=== PATIENT | male | born 1955 | race Caucasian/White ===

== ENCOUNTER → 2016-08-01 | Outpatient (CLI) | payer BC ==
[~2016-08-01] MED LIST: CENTRUM SILVER1 TAB PO; COLACE 100100 MG/CAP PO; FLOMAX 0.40.4 MG/CAP PO; FORT1000TA PO; GLEEVEC100 MG PO; GLUCOSAMINE CHO1 CAP PO; HUMULIN R100 U/ML SC; LANTUS100 U/ML SC; LIPITOR40 MG PO; METAMUCIL1 PDR PO; NORCO 325 MG-51 TAB PO; NOVOLOG 100U100 U/M1 SC; PRECOSE100 MG PO; PRINIVIL10 MG PO; PROTONIX20 MG PO; PYRIDIUM 100MG100 MG PO; PYRIDIUM200 M1 PO; SUPER EPA 1201200 MG PO; TRICOR48 MG PO; VITAMIN C500 MG PO; ZETIA 10MG TAB10 MG PO; ZOFRAN 4MG T4 MG/TAB PO; [UNRECOGNIZED DRUG - OTHER] PO
== END ==
LOC: COL.RAD 06:55
DX: C49.A0 Gastrointestinal stromal tumor, unspecified site (principal); K76.9 Liver disease, unspecified
CPT/HCPCS: Q9967

== ENCOUNTER → 2016-10-30 | Outpatient (CLI) | payer BC | LOC: COL.RAD 10-24 11:30 | DX: C78.6 Secondary malignant neoplasm of retroperitoneum and peritoneum (principal); C79.89 Secondary malignant neoplasm of other specified sites; N20.0 Calculus of kidney | CPT/HCPCS: Q9967 ==

== ENCOUNTER → 2016-12-11 | Outpatient (REF) | LOC: ZLAB.WCH 18:06 | DX: Z01.89 Encounter for other specified special examinations (principal) ==

== ENCOUNTER → 2017-04-23 | Outpatient (REF) | LOC: ZLAB.WCH 08:43 | DX: Z01.89 Encounter for other specified special examinations (principal) ==

== ENCOUNTER → 2017-08-29 | Outpatient (REF) ==
[2017-08-29 16:01] LABS: IRON,SERUM 124 ug/dL (35-150)
[2017-08-29 16:37] LABS: FERRITIN 44 ng/mL (18-464)
== END ==
LOC: ZLAB.WCH 15:35
PROVIDERS: Family Medicine
DX: Z01.89 Encounter for other specified special examinations (principal)

== ENCOUNTER → 2017-09-05 | Outpatient (REF) | LOC: ZLAB.WCH 15:46 | DX: Z01.89 Encounter for other specified special examinations (principal) ==